=== PATIENT | female | born 1955 | race Caucasian/White ===

== ENCOUNTER 2020-12-02 08:09 | Outpatient (CLI) | payer MEDICARE ==
[2020-12-02 15:18] LABS: CHOL/HDL RATIO 2.1 (<4.4); CHOLESTEROL 212 mg/dL; HDL CHOLESTEROL 100 mg/dL; LDL CHOLESTEROL,CALCULATED 101 mg/dL; TRIGLYCERIDES 54 mg/dL; VLDL CHOLESTEROL 11 mg/dL
== END 2020-12-02 08:10 | disposition home or self-care (01) ==
LOC: LAB.S 08:09
PROVIDERS: ATTEND Internal Medicine
DX: Z13.220 Encounter for screening for lipoid disorders (principal)
CPT/HCPCS: 36415; 80061; 83721

== ENCOUNTER 2022-01-11 12:26 | Outpatient (CLI) | payer MEDICARE ==
--- NOTE | 2022-01-11 17:01 | DEXA Report ---
PROCEDURE: Dexa Spine and/or Hip INDICATIONS: POST MENOPAUSAL TECHNIQUE: Dual energy x-ray absorptiometry (DXA) was performed on a Bou[employer] System. Regions measur ed are the AP Spine, femoral neck, and if needed forearm. COMPARISON: None. FINDINGS: Lumbar Spine: Bone Mineral Density 1.1 g/cm/cm,T score -1.0, normal bone density Left Hip: Bone Mineral Density 0.8 g/cm/cm,T score -1.3; Osteopenia Impression: 1. Normal lumbar spine bone density. 2. Left hip osteopenia. Patients with diagnosis of osteoporosis or osteopenia should have regular bone mineral density assess ment. For those eligible for Medicare, routine testing is allowed once every 2 years. Testing frequ ency can be increased for patients who have rapidly progressing disease or for those who are receivin g medical therapy to restore bone mass. Reviewed by: Mateus Iyer MD on 01/11/2022 4:59 PM PDT Approved by: Mateus Iyer MD on 01/11/2022 4:59 PM PDT Station ID: [id number]
== END 2022-01-11 12:27 | disposition home or self-care (01) ==
LOC: DI 12:26
PROVIDERS: ATTEND Internal Medicine
DX: M85.88 Other specified disorders of bone density and structure, other site (principal); Z78.0 Asymptomatic menopausal state

== ENCOUNTER 2022-02-01 13:53 | Outpatient (CLI) | payer MEDICARE ==
[2022-02-01 20:12] LABS: CHOL/HDL RATIO 2.2 (<4.4); CHOLESTEROL 226 mg/dL; HDL CHOLESTEROL 103 mg/dL; TRIGLYCERIDES 32 mg/dL
[2022-02-03 03:09] LABS: HCV AB <0.1 s/co ratio (0.0-0.9)
== END 2022-02-01 13:54 | disposition home or self-care (01) ==
LOC: LAB.S 13:53
PROVIDERS: ATTEND Internal Medicine
DX: Z13.220 Encounter for screening for lipoid disorders (principal); Z11.59 Encounter for screening for other viral diseases
CPT/HCPCS: 36415; 80061; 83721; 86803

== ENCOUNTER 2022-10-04 08:00 | Outpatient (CLI) | payer MEDICARE | END 2022-10-04 23:59 | disposition home or self-care (01) | LOC: LAB 08:00 | PROVIDERS: ATTEND Physician Assistant Medical | DX: N30.01 Acute cystitis with hematuria (principal) | CPT/HCPCS: 87086; 87181 ==

== ENCOUNTER 2023-02-21 10:26 | Outpatient (CLI) | payer MEDICARE ==
--- NOTE | 2023-02-28 11:25 | Mammography Report ---
BILATERAL DIGITAL SCREENING MAMMOGRAM 3D/2D WITH AUGMENTATION: 02/21/2023 CLINICAL: Routine screening. No prior exams were available for comparison. There are scattered areas of fibroglandular density in both breasts (category b / 25%-50% glandular t issue). Bilateral breast implants are intact. No significant masses, calcifications, or other findings are seen in either breast. IMPRESSION: NEGATIVE There is no mammographic evidence of malignancy. A 1 year screening mammogram is recommended. Based on the Tyrer Cuzick model (a risk assessment model) the patients lifetime risk is 5.3% and her 10 year risk is 3.4%. According to the ACR, ACS, and NCCN guidelines, an annual breast MRI exam bradly g with mammogram is recommended if the patients lifetime risk is 20% or greater. This exam was interpreted at Station ID: [id number]. NOTE: For mammograms, a report in lay terms will be sent to the patient. Approximately 15% of breast malignancies will not be visualized mammographically. In the management of a palpable breast mass, a negative mammogram must not discourage biopsy of a clinically suspicious lesion. Electronically Signed By: Roderick ambrosio/lino:02/28/2023 09:05:03 letter sent: No_Letter ACR BI-RADS Category 1: Negative 3341F PARENCHYMAL PATTERN: (A) - The breast(s) demonstrate(s) scattered fibroglandular densities. BI-RADS CATEGORY: (1) - 1 Mammogram [id number] 1 year screening LATERALITY: (B)
== END 2023-02-21 10:27 | disposition home or self-care (01) ==
LOC: DI.S 10:26
DX: Z12.31 Encounter for screening mammogram for malignant neoplasm of breast (principal)

== ENCOUNTER 2023-06-27 10:00 | Outpatient (CLI) | payer MEDICARE | END 2023-06-27 23:59 | disposition home or self-care (01) | LOC: LAB.S 10:00 | PROVIDERS: ATTEND Registered Nurse | DX: R39.15 Urgency of urination (principal); R30.0 Dysuria | CPT/HCPCS: 87086; 87181 ==

== ENCOUNTER 2024-04-11 08:00 | Outpatient (CLI) | payer MEDICARE ==
--- NOTE | 2024-04-11 21:42 | XRAY Report ---
PROCEDURE: Chest 2V INDICATIONS: COUGH/FOCAL PNA TECHNIQUE: 2 views of the chest were acquired. COMPARISON: None. FINDINGS: Surgical changes and devices: None. Lungs and pleura: Minimal appearance of opacities are present in the right base. Mediastinum: Mediastinal contours appear normal. Heart size is normal. Bones and chest wall: No suspicious bony lesions. Overlying soft tissues appear unremarkable. IMPRESSION: Minimal nonspecific right basilar opacities. This could represent atelectasis. Developing pneumonia c annot be excluded. Reviewed by: Jenny Og MD on 04/11/2024 9:41 PM PDT Approved by: Jenny Og MD on 04/11/2024 9:41 PM PDT Station ID: [id number]
== END 2024-04-11 23:59 | disposition home or self-care (01) ==
LOC: DI.S 08:00
PROVIDERS: ATTEND Emergency Medicine
DX: J18.8 Other pneumonia, unspecified organism (principal)